=== PATIENT | male | born 1945 | race Caucasian/White ===

== ENCOUNTER 2016-09-14 09:40 | Emergency (ER) | payer MEDICARE, BC ==
[2016-09-14] MEDS ORDERED: Tetracaine 0.5% 2 ML Bottle EYELF ONE (09:45)
[2016-09-14 09:49] VITALS: BP 129/78
--- NOTE | 2016-09-14 10:20 | EDM.PDOC ---
[id number] eye Time Seen by Provider: 09/14/16 10:00 Source of Information: Reports: Patient History Limitations: Reports: No limitations - History of Present Illness INITIAL COMMENTS - FREE TEXT/NARRATIVE: my General medical History and physical: History of present illness: [Patient comes to the emergency room for evaluation of a sensation of foreign body in his left eye. He saw Brittany Portillo for this on Thursday, September 12 in the clinic. He felt better that day and yesterday. Last evening a sensation of a foreign body returned in his eye became more painful and red. He is sensitive to light. He was working on a [place] and questions if he has a small piece of metal or a piece of a [place] in his eye. Patient reports some foreign body was removed in the clinic on Thursday. No eyedrops and medications were given at that time. He denies pain and foreign body sensation in his right eye. He has no other complaints or concerns today.] Review of Systems: As per history of present illness and below otherwise all systems reviewed and negative. Past medical history: As per history of present illness and as reviewed below otherwise noncontributory. Surgical history: As per history of present illness and is reviewed below other [place] noncontributory. Social history: No reported history of drug or alcohol abuse. Family history: As per history of present illness and is reviewed below otherwise noncontributory. Physical exam: HEENT: Atraumatic, normocephalic. PERRLA. EOMI. Tetracaine is applied to the left eye for anesthesia.. Fluorescein is applied. Using a black light, the entire eye was visualized. He has a small hard leni embedded in the cornea of his pupil which was unable to be removed. Q-tip was used to candida the eyelid. Otherwise no foreign body was visualized. Impression: [Foreign body left eye] Plan: [Patient is given Gentamicin solution 0.3% one to 2 drops in affected eye every 4 hours. hhe is to followup with a local staffing consultant tomorrow morning. He is given contact information and he verbalized understanding. Tylenol or ibuprofen as needed for discomfort. He is in agreement with today's plan. All of his questions are answered and concerns are addressed.] Definitive disposition and diagnosis is appropriate pending reevaluation and review of above. - Related Data Allergies/ADRs: Allergies Allergy/AdvReac Type Severity Reaction Status Date / Time No Known Allergies Allergy Verified 09/14/16 09:50 Home Meds: Home Meds . [No Known Home Meds] 09/14/16 [History] Past Medical History - Past Surgical History Musculoskeletal Surgical History: Reports: Other (see below) Other Musculoskeletal Surgeries/Procedures:: back surgery Social & Family History - Tobacco Use Smoking Status *Q: Never Smoker - Caffeine Use Caffeine Use: Reports: None - Recreational Drug Use Recreational Drug Use: No ED ROS ENT - Review of Systems Review Of Systems: ROS reveals no pertinent complaints other than HPI. ED EXAM, ENT - Physical Exam Exam: See Below Course - Vital Signs Last Recorded V/S: Last Vital Signs Temp 97.5 F 09/14/16 09:47 Pulse 71 09/14/16 09:47 Resp 16 09/14/16 09:47 BP 129/78 09/14/16 09:47 Pulse Ox 96 09/14/16 09:47 - Orders/Labs/Meds Meds: Medications Discontinued Medications Generic Name Dose Route Start Last Admin Trade Name Erica PRN Reason Stop Dose Admin Gentamicin Sulfate 0 ml 09/14/16 10:30 09/14/16 10:34 Garamycin 0.3% Ophth Soln EYELF 2 drop Q4H BELÉN Administration Tetracaine 1 ml 09/14/16 09:45 09/14/16 09:45 Pontocaine 0.5% Ophth Drops EYELF 09/14/16 09:46 1 drop ASDIRECTED ONE Administration Departure - Departure Time of Disposition: 10:20 Disposition: Home, Self-Care 01 Condition: good Clinical Impression: Foreign body of left eye Qualifiers: Encounter type: initial encounter Qualified Code(s): T15.92XA - Foreign body on external eye, part unspecified, left eye, initial encounter Referrals: PCP,None [Primary Care Provider] - Forms: ED Department Discharge Additional Instructions: The following information is given to patients seen in the emergency department who are being discharged home. This information is to outline your options for follow-up care and provides all patient seen in our emergency department with a follow-up referral. The need for follow-up, as well as the timing and circumstances, are variable depending upon the specifics of each emergency department visit. If you don't have a primary care physician on staff, we will provide you with a referral. We always advise to contact your personal physician following an emergency department visit to inform them of the circumstances of the visit and for follow-up with them and/or the need for any referrals to a consulting specialist. The emergency department will also refer you to a specialist when appropriate. This referral assures that you have the opportunity for follow-up care with a specialist. All of these measures are taken in an effort to provide you with optimal care, which includes your follow-up. Under all circumstances we always encourage you to contact your private physician who remains a resource for coordinating your care. When calling for follow-up care, please make the office aware that this follow-up is from your recent emergency room visit. If for any reason you are refused follow-up please contact the [facility] emergency department at [phone] and ask to speak to the emergency department nurse. Dr. Teri Lantigua [facility] [address] [address] Lantigua's office tomorrow to schedule an appointment to be seen regarding your left eye. Use gentamicin eyedrops, 2 drops in your left eye every 4 hours. You may take Tylenol or ibuprofen for discomfort. Return to ER as needed as discussed.
[2016-09-14] MEDS ORDERED: Gentamicin 0.3% Ophth Soln 5 ML Bottle EYELF SCH (10:30)
== END 2016-09-14 10:20 | disposition home or self-care (01) ==
LOC: CC.ED 09:40
DX: T15.02XA Foreign body in cornea, left eye, initial encounter (principal)
CPT/HCPCS: 99282